=== PATIENT | male | born 1955 | race Caucasian/White ===

== ENCOUNTER 2017-09-23 07:06 | Day surgery (SDC) | payer OTHER, BC ==
[~2017-09-23] VITALS: Ht 177.8 cm; Wt 79.3 kg
[~2017-09-23 07:06] MED LIST: ADVIL,NUPRIN,M200 MG PO; ALIGN4 MG PO; BENEFIBER236 GM PO; NAPROSYN500 MG PO
[2017-09-23] MEDS ORDERED: TYLENOL EXTRA500 MG PO (07:34)
[2017-09-23] MEDS ORDERED: PERCOCET 5/31 TABLET PO (11:44)
[2017-09-23 13:15] VITALS: BP 132/70
[2017-09-23 14:15] VITALS: BP 117/61
[2017-09-23 16:30] VITALS: BP 133/62
== END 2017-09-23 16:55 | disposition home or self-care (01) ==
LOC: SDC 07:06
DX: K40.90 Unilateral inguinal hernia, without obstruction or gangrene, not specified as recurrent (principal); K42.0 Umbilical hernia with obstruction, without gangrene; X50.0XXA Overexertion from strenuous movement or load, initial encounter; Y99.0 Civilian activity done for income or pay; K57.90 Diverticulosis of intestine, part unspecified, without perforation or abscess without bleeding
CPT/HCPCS: C1727; C1781; J0690; J1100; J1170; J1885; J2250; J3010

== ENCOUNTER 2017-10-20 13:13 | Inpatient (IN) | payer BC ==
[~2017-10-20] VITALS: Ht 177.8 cm; Wt 78.2 kg
[~2017-10-20 13:13] MED LIST changes: +PERCOCET 5/31 TABLET PO; +TYLENOL EXTRA500 MG PO
[2017-10-20] MEDS ORDERED: MOTRIN800 MG PO (13:31)
[2017-10-20] MEDS ORDERED: FLEXERIL5 MG PO (13:32)
[2017-10-20 13:51] LABS: HEMATOCRIT 22.1 % (38.0-50.0); HEMOGLOBIN 7.5 G/DL (12.5-16.6); MCH 29.2 PG (29.0-34.0); MCHC 33.9 G/DL (30.0-36.0); PLATELET COUNT 179 K/uL (156-360); RBC DIS.WIDTH-CV 13.6 % (11.8-14.6); RBC DIS.WIDTH-SD 41.9 % (39-53); RED BLOOD COUNT 2.57 M/uL (4.00-5.50); WHITE BLOOD COUNT 12.9 K/uL (4.1-10.2)
[2017-10-20 14:04] LABS: ALBUMIN 3.4 g/dL (3.2-4.8); CHLORIDE 105 mEq/L (99-109); POTASSIUM 4.1 mEq/L (3.7-5.4); SODIUM 138 mEq/L (136-147)
[2017-10-20 14:06] LABS: GLUCOSE 132 mg/dL (70-99)
[2017-10-20 14:07] LABS: TOTAL PROTEIN 5.8 g/dL (6.4-8.3)
[2017-10-20 14:08] LABS: TOTAL BILIRUBIN 0.5 mg/dL (0.0-1.0)
[2017-10-20 14:10] LABS: ALKALINE PHOSPHATASE 48 IU/L (3-129); CREATININE 1.5 mg/dL (0.6-1.3); GFR ESTIMATE (CALCULATED) 50 mL/min/ (58.99-99999)
[2017-10-20 14:11] LABS: UREA NITROGEN (BUN) 59 mg/dL (9-23)
[2017-10-20 14:12] LABS: AST (GOT) 10 IU/L (2-34); DIRECT BILIRUBIN 0.2 mg/dL (0.0-0.3)
[2017-10-20 14:13] LABS: ALT (GPT) 15 IU/L (3-49); LIPASE 17 U/L (1.0-51.0)
[2017-10-20 14:14] LABS: TROP-I INTERPRETATION NEGATIVE; TROPONIN-I 0.01 ng/mL (0.0-0.30)
[2017-10-20 15:08] LABS: APPEARANCE CLEAR ((CLEAR)); BILIRUBIN NEGATIVE; BLOOD NEGATIVE; COLOR STRAW ((YELLOW)); GLUCOSE (STRIP) NEGATIVE; KETONES NEGATIVE; LEUKOCYTES NEGATIVE; NITRITE NEGATIVE; PROTEIN (STRIP) NEGATIVE; SPECIFIC GRAVITY 1.013 (1.000-1.030); UROBILINOGEN 0.2 MG/DL (0.2-1.0)
[2017-10-20] MEDS ORDERED: METAMUCIL POWD822 G1 PO (17:05)
[2017-10-20] MEDS ORDERED: ALIGN4 MG PO (17:05)
[2017-10-20 19:31] VITALS: BP 122/81
[2017-10-20 19:55] VITALS: BP 118/64
[2017-10-20 20:40] VITALS: BP 125/79
[2017-10-20 22:23] VITALS: BP 141/77
[2017-10-21] VITALS (10 sets, daily range): BP systolic 113–140; BP diastolic 65–85
[2017-10-21 06:45] LABS: BASOPHIL (%) 0.2 % (0-1); EOSINOPHIL (%) 0.5 % (0-5); EOSINOPHIL COUNT 0.1 K/uL (0-0.3); HEMATOCRIT 25.3 % (38.0-50.0); HEMOGLOBIN 8.4 G/DL (12.5-16.6); IMMATURE GRANULOCYTE (%) 0.3 % (0.0-0.7); MCH 28.7 PG (29.0-34.0); MCHC 33.2 G/DL (30.0-36.0); MCV 86.3 FL (86-99); NEUTROPHIL COUNT 9.3 K/uL (1.8-6.4); PLATELET COUNT 152 K/uL (156-360); RBC DIS.WIDTH-CV 13.8 % (11.8-14.6); RBC DIS.WIDTH-SD 42.8 % (39-53); RED BLOOD COUNT 2.93 M/uL (4.00-5.50); WHITE BLOOD COUNT 12.4 K/uL (4.1-10.2)
[2017-10-21 07:13] LABS: CHLORIDE 109 MEQ/L (99-109); CREATININE 1.2 MG/DL (0.6-1.3); GFR ESTIMATE (CALCULATED) > 59 mL/min/ (58.99-99999); GLUCOSE 115 mg/dL (70-99); POTASSIUM 3.9 MEQ/L (3.7-5.4); SODIUM 141 MEQ/L (136-147); UREA NITROGEN (BUN) 38 mg/dL (9-23)
[2017-10-21 13:24] LABS: INTER. NORMALIZED RATIO 1.2
[2017-10-21 13:26] LABS: PTT 27.5 SEC (25-37)
[2017-10-22 06:10] LABS: BASOPHIL (%) 0.1 % (0-1); EOSINOPHIL (%) 1.7 % (0-5); EOSINOPHIL COUNT 0.1 K/uL (0-0.3); HEMATOCRIT 24.2 % (38.0-50.0); HEMOGLOBIN 8.1 G/DL (12.5-16.6); IMMATURE GRANULOCYTE (%) 0.4 % (0.0-0.7); LYMPHOCYTE (%) 16.2 % (15-42); LYMPHOCYTE COUNT 1.2 K/uL (1.0-2.8); MCHC 33.5 G/DL (30.0-36.0); MCV 86.7 FL (86-99); MONOCYTE (%) 7.7 % (3-12); MONOCYTE COUNT 0.6 K/uL (0-0.8); NEUTROPHIL (%) 73.9 % (45-76); NEUTROPHIL COUNT 5.7 K/uL (1.8-6.4); PLATELET COUNT 157 K/uL (156-360); RBC DIS.WIDTH-CV 13.9 % (11.8-14.6); RBC DIS.WIDTH-SD 42.8 % (39-53); RED BLOOD COUNT 2.79 M/uL (4.00-5.50); WHITE BLOOD COUNT 7.7 K/uL (4.1-10.2)
[2017-10-22 06:55] LABS: CHLORIDE 108 MEQ/L (99-109); CREATININE 0.9 MG/DL (0.6-1.3); GFR ESTIMATE (CALCULATED) > 59 mL/min/ (58.99-99999); GLUCOSE 109 mg/dL (70-99); POTASSIUM 3.8 MEQ/L (3.7-5.4); SODIUM 141 MEQ/L (136-147); UREA NITROGEN (BUN) 20 mg/dL (9-23)
[2017-10-22 07:20] VITALS: BP 134/69
[2017-10-22 15:47] VITALS: BP 129/64
[2017-10-23] VITALS (9 sets, daily range): BP systolic 120–163; BP diastolic 72–88
[2017-10-23 06:15] LABS: BASOPHIL (%) 0.2 % (0-1); EOSINOPHIL COUNT 0.1 K/uL (0-0.3); HEMATOCRIT 20.3 % (38.0-50.0); IMMATURE GRANULOCYTE (%) 0.2 % (0.0-0.7); LYMPHOCYTE (%) 23.1 % (15-42); MCH 29.1 PG (29.0-34.0); MCHC 33.5 G/DL (30.0-36.0); MCV 86.8 FL (86-99); MONOCYTE (%) 8.9 % (3-12); MONOCYTE COUNT 0.4 K/uL (0-0.8); NEUTROPHIL (%) 64.6 % (45-76); NEUTROPHIL COUNT 2.8 K/uL (1.8-6.4); PLATELET COUNT 126 K/uL (156-360); RBC DIS.WIDTH-CV 13.8 % (11.8-14.6); RBC DIS.WIDTH-SD 42.2 % (39-53); RED BLOOD COUNT 2.34 M/uL (4.00-5.50); WHITE BLOOD COUNT 4.3 K/uL (4.1-10.2)
[2017-10-23 06:16] LABS: HEMOGLOBIN 6.8 G/DL (12.5-16.6)
[2017-10-23 06:31] LABS: CHLORIDE 108 MEQ/L (99-109); CREATININE 1.2 MG/DL (0.6-1.3); GFR ESTIMATE (CALCULATED) > 59 mL/min/ (58.99-99999); GLUCOSE 115 mg/dL (70-99); IRON 17 MCG/DL (35-150); POTASSIUM 3.8 MEQ/L (3.7-5.4); SODIUM 141 MEQ/L (136-147); TRANSFERRIN (TIBC) 134.2 mg/dL (215-380); TRANSFERRIN SATUR. 13 % (20-55); UREA NITROGEN (BUN) 18 mg/dL (9-23)
[2017-10-23 08:23] LABS: FERRITIN 517 NG/ML (22-322); FOLIC ACID (FOLATE) 14.3 NG/ML (5.0-22.0)
[2017-10-23 09:42] LABS: FIBRINOGEN 412 mg/dL (150-450); INTER. NORMALIZED RATIO 1.1
[2017-10-23 09:44] LABS: PTT 26.8 SEC (25-37)
[2017-10-23 14:00] LABS: ABSOLUTE RETICULOCYTE CT. 0.1 M/uL (0.02-0.08); IMM.RETIC FRACTION 17.2 % (3-19); RETIC HGB EQUIVALENT 33.1 (28-36); RETICULOCYTE COUNT 2.5 % (0.5-1.8)
[2017-10-24 07:05] VITALS: BP 149/85
[2017-10-24 07:09] VITALS: BP 130/62
[2017-10-24 08:27] LABS: BASOPHIL (%) 0 % (0-1); EOSINOPHIL (%) 1.4 % (0-5); EOSINOPHIL COUNT 0.1 K/uL (0-0.3); HEMATOCRIT 28.6 % (38.0-50.0); IMMATURE GRANULOCYTE (%) 0.2 % (0.0-0.7); LYMPHOCYTE COUNT 0.7 K/uL (1.0-2.8); MCH 29.5 PG (29.0-34.0); MCHC 33.9 G/DL (30.0-36.0); MCV 86.9 FL (86-99); MONOCYTE (%) 9.1 % (3-12); MONOCYTE COUNT 0.5 K/uL (0-0.8); NEUTROPHIL (%) 75.3 % (45-76); NEUTROPHIL COUNT 3.9 K/uL (1.8-6.4); PLATELET COUNT 127 K/uL (156-360); RBC DIS.WIDTH-CV 13.8 % (11.8-14.6); RBC DIS.WIDTH-SD 42.6 % (39-53); WHITE BLOOD COUNT 5.2 K/uL (4.1-10.2)
[2017-10-24 08:28] LABS: HEMOGLOBIN 9.7 G/DL (12.5-16.6); RED BLOOD COUNT 3.29 M/uL (4.00-5.50)
[2017-10-24 08:43] LABS: ALBUMIN 3.1 G/DL (3.2-4.8); CHLORIDE 106 MEQ/L (99-109); POTASSIUM 3.8 MEQ/L (3.7-5.4); SODIUM 141 MEQ/L (136-147); TOTAL BILIRUBIN 0.6 MG/DL (0.0-1.0)
[2017-10-24 08:49] LABS: ALKALINE PHOSPHATASE 44 IU/L (3-129); ALT (GPT) 15 IU/L (3-49); AST (GOT) 17 IU/L (2-34); CREATININE 1.1 MG/DL (0.6-1.3); GFR ESTIMATE (CALCULATED) > 59 mL/min/ (58.99-99999); GLUCOSE 115 mg/dL (70-99); TOTAL PROTEIN 5.3 G/DL (6.4-8.3); UREA NITROGEN (BUN) 16 mg/dL (9-23)
[2017-10-24 15:15] VITALS: BP 132/77
[2017-10-24 23:54] VITALS: BP 137/73
[2017-10-25 05:53] LABS: BASOPHIL (%) 0.2 % (0-1); EOSINOPHIL (%) 2.3 % (0-5); EOSINOPHIL COUNT 0.1 K/uL (0-0.3); HEMATOCRIT 24.9 % (38.0-50.0); HEMOGLOBIN 8.4 G/DL (12.5-16.6); IMMATURE GRANULOCYTE (%) 0.2 % (0.0-0.7); LYMPHOCYTE (%) 17.9 % (15-42); LYMPHOCYTE COUNT 0.9 K/uL (1.0-2.8); MCH 29.4 PG (29.0-34.0); MCHC 33.7 G/DL (30.0-36.0); MCV 87.1 FL (86-99); MONOCYTE (%) 11.2 % (3-12); MONOCYTE COUNT 0.5 K/uL (0-0.8); NEUTROPHIL (%) 68.2 % (45-76); NEUTROPHIL COUNT 3.2 K/uL (1.8-6.4); PLATELET COUNT 131 K/uL (156-360); RBC DIS.WIDTH-CV 13.8 % (11.8-14.6); RBC DIS.WIDTH-SD 42.3 % (39-53); RED BLOOD COUNT 2.86 M/uL (4.00-5.50); WHITE BLOOD COUNT 4.8 K/uL (4.1-10.2)
[2017-10-25 06:33] LABS: ALBUMIN 2.8 G/DL (3.2-4.8); ALKALINE PHOSPHATASE 40 IU/L (3-129); ALT (GPT) 28 IU/L (3-49); CHLORIDE 106 MEQ/L (99-109); CREATININE 1.3 MG/DL (0.6-1.3); GFR ESTIMATE (CALCULATED) > 59 mL/min/ (58.99-99999); GLUCOSE 108 mg/dL (70-99); POTASSIUM 4.1 MEQ/L (3.7-5.4); SODIUM 141 MEQ/L (136-147); TOTAL PROTEIN 4.7 G/DL (6.4-8.3); UREA NITROGEN (BUN) 15 mg/dL (9-23)
[2017-10-25 06:35] LABS: AST (GOT) 29 IU/L (2-34); TOTAL BILIRUBIN 0.4 MG/DL (0.0-1.0)
[2017-10-25 08:06] VITALS: BP 138/74
[2017-10-25 15:50] VITALS: BP 107/74
[2017-10-25 18:29] LABS: STOOL OCCULT BLD 1ST SPECIMEN POSITIVE
[2017-10-25 23:15] VITALS: BP 113/75
[2017-10-26 08:02] VITALS: BP 122/75
[2017-10-26 09:40] LABS: BASOPHIL (%) 0.2 % (0-1); EOSINOPHIL (%) 1.2 % (0-5); EOSINOPHIL COUNT 0.1 K/uL (0-0.3); HEMOGLOBIN 8.6 G/DL (12.5-16.6); IMMATURE GRANULOCYTE (%) 0.5 % (0.0-0.7); LYMPHOCYTE (%) 12.4 % (15-42); LYMPHOCYTE COUNT 0.7 K/uL (1.0-2.8); MCH 29.2 PG (29.0-34.0); MCHC 33.1 G/DL (30.0-36.0); MCV 88.1 FL (86-99); MONOCYTE (%) 10.1 % (3-12); MONOCYTE COUNT 0.6 K/uL (0-0.8); NEUTROPHIL (%) 75.6 % (45-76); NEUTROPHIL COUNT 4.3 K/uL (1.8-6.4); PLATELET COUNT 157 K/uL (156-360); RBC DIS.WIDTH-SD 44.4 % (39-53); RED BLOOD COUNT 2.95 M/uL (4.00-5.50); WHITE BLOOD COUNT 5.6 K/uL (4.1-10.2)
[2017-10-26 17:14] VITALS: BP 125/75
[2017-10-26 22:33] VITALS: BP 113/69
[2017-10-27] VITALS (12 sets, daily range): BP systolic 115–144; BP diastolic 68–81
[2017-10-27 05:29] LABS: BASOPHIL (%) 0.2 % (0-1); EOSINOPHIL (%) 1.7 % (0-5); EOSINOPHIL COUNT 0.1 K/uL (0-0.3); HEMATOCRIT 24.4 % (38.0-50.0); HEMOGLOBIN 8.1 G/DL (12.5-16.6); IMMATURE GRANULOCYTE (%) 0.2 % (0.0-0.7); MCH 29.2 PG (29.0-34.0); MCHC 33.2 G/DL (30.0-36.0); MCV 88.1 FL (86-99); MONOCYTE (%) 11.2 % (3-12); MONOCYTE COUNT 0.7 K/uL (0-0.8); NEUTROPHIL (%) 70.7 % (45-76); NEUTROPHIL COUNT 4.6 K/uL (1.8-6.4); PLATELET COUNT 166 K/uL (156-360); RBC DIS.WIDTH-CV 13.7 % (11.8-14.6); RBC DIS.WIDTH-SD 44.2 % (39-53); RED BLOOD COUNT 2.77 M/uL (4.00-5.50); WHITE BLOOD COUNT 6.5 K/uL (4.1-10.2)
[2017-10-28 06:20] LABS: BASOPHIL (%) 0.1 % (0-1); EOSINOPHIL (%) 1.5 % (0-5); EOSINOPHIL COUNT 0.1 K/uL (0-0.3); HEMATOCRIT 29.8 % (38.0-50.0); IMMATURE GRANULOCYTE (%) 0.4 % (0.0-0.7); LYMPHOCYTE COUNT 0.8 K/uL (1.0-2.8); MCH 29.8 PG (29.0-34.0); MCHC 33.6 G/DL (30.0-36.0); MCV 88.7 FL (86-99); MONOCYTE (%) 10.8 % (3-12); MONOCYTE COUNT 0.8 K/uL (0-0.8); NEUTROPHIL (%) 76.2 % (45-76); NEUTROPHIL COUNT 5.5 K/uL (1.8-6.4); PLATELET COUNT 161 K/uL (156-360); RBC DIS.WIDTH-CV 13.8 % (11.8-14.6); WHITE BLOOD COUNT 7.2 K/uL (4.1-10.2)
[2017-10-28 06:28] LABS: RED BLOOD COUNT 3.36 M/uL (4.00-5.50)
[2017-10-28 06:47] LABS: CHLORIDE 101 MEQ/L (99-109); CREATININE 1.5 MG/DL (0.6-1.3); GFR ESTIMATE (CALCULATED) 50 mL/min/ (58.99-99999); GLUCOSE 105 mg/dL (70-99); POTASSIUM 4.1 MEQ/L (3.7-5.4); SODIUM 137 MEQ/L (136-147); UREA NITROGEN (BUN) 21 mg/dL (9-23)
[2017-10-28 08:51] VITALS: BP 113/71
[2017-10-28 16:07] VITALS: BP 117/74
[2017-10-29 06:32] LABS: HEMATOCRIT 29.6 % (38.0-50.0); HEMOGLOBIN 9.6 G/DL (12.5-16.6); MCH 28.9 PG (29.0-34.0); MCHC 32.4 G/DL (30.0-36.0); MCV 89.2 FL (86-99); RBC DIS.WIDTH-CV 13.9 % (11.8-14.6); RBC DIS.WIDTH-SD 45.4 % (39-53); RED BLOOD COUNT 3.32 M/uL (4.00-5.50); WHITE BLOOD COUNT 7.7 K/uL (4.1-10.2)
[2017-10-29 06:41] VITALS: BP 130/72
[2017-10-29 06:42] LABS: PLATELET COUNT 211 K/uL (156-360)
[2017-10-29 06:53] LABS: CHLORIDE 102 MEQ/L (99-109); CREATININE 1.6 MG/DL (0.6-1.3); GFR ESTIMATE (CALCULATED) 47 mL/min/ (58.99-99999); GLUCOSE 97 mg/dL (70-99); POTASSIUM 4.7 MEQ/L (3.7-5.4); SODIUM 137 MEQ/L (136-147); UREA NITROGEN (BUN) 25 mg/dL (9-23)
[2017-10-29 12:03] LABS: HEMATOCRIT 31.9 % (38.0-50.0); HEMOGLOBIN 10.4 G/DL (12.5-16.6); MCV 89.4 FL (86-99)
[2017-10-29] MEDS ORDERED: NADOLOL40 MG PO (12:24)
[2017-10-29] MEDS ORDERED: PANTOPRAZOLE SO40 MG PO (12:25)
[2017-10-29] MEDS ORDERED: CREON 241 CAPSULE PO (12:25)
[2017-10-29] MEDS ORDERED: ENDOCET 5-3251 EACH PO (12:25)
[2017-10-29] MEDS ORDERED: CEPHALEXIN500 MG PO (12:28)
== END 2017-10-29 14:35 | disposition home or self-care (01) | DRG 436 ==
LOC: EME 13:13 → 5EAST 19:26 → EDOF 19:26 → ENRESERV 19:28 → 5EAST 21:05 → ENPENDDIS 10-29 → 5EAST 10-29 14:35
PROVIDERS: Emergency Medicine; Hospitalist; Internal Medicine Gastroenterology; Internal Medicine Hematology & Oncology; Nurse Practitioner Family; Radiology Diagnostic Radiology; Student in an Organized Health Care Education/Training Program
PROC: 30233N1 Transfusion of Nonautologous Red Blood Cells into Peripheral Vein, Percutaneous Approach (ICD-10-PCS; principal; 2017-10-20)
PROC: 0BBN3ZX Excision of Right Pleura, Percutaneous Approach, Diagnostic (ICD-10-PCS; 2017-10-21)
PROC: 0DJ08ZZ Inspection of Upper Intestinal Tract, Via Natural or Artificial Opening Endoscopic (ICD-10-PCS; 2017-10-28)
DX: C25.2 Malignant neoplasm of tail of pancreas (principal); C78.6 Secondary malignant neoplasm of retroperitoneum and peritoneum; N13.6 Pyonephrosis; D63.8 Anemia in other chronic diseases classified elsewhere; D73.5 Infarction of spleen; R18.8 Other ascites; I86.4 Gastric varices; K29.80 Duodenitis without bleeding; K40.90 Unilateral inguinal hernia, without obstruction or gangrene, not specified as recurrent; K92.1 Melena; K76.9 Liver disease, unspecified; N28.9 Disorder of kidney and ureter, unspecified; M54.5 Low back pain; G89.29 Other chronic pain; Z82.49 Family history of ischemic heart disease and other diseases of the circulatory system; Z81.8 Family history of other mental and behavioral disorders; Z83.3 Family history of diabetes mellitus; Z98.890 Other specified postprocedural states
CPT/HCPCS: 74176; 74177; 74183; 77012; 80048; 80053; 80076; 81003; 82272; 82607; 82728; 82746; 83540; 83605; 83690; 84466; 84484; 85014; 85018; 85025; 85027; 85379; 85384; 85610; 85730; 86301 90; 86850; 86900; 86901; 86920; 87040; 88305; 88341 TC; 88342 TC; 93005; 99281; 99285; C9113; J0696; J1170; J1650; J2270; J2405; J3010; J7030; P9016

== ENCOUNTER 2017-11-18 15:27 | Inpatient (IN) | payer BC ==
[~2017-11-18 15:27] MED LIST changes: +CEPHALEXIN500 MG PO; +CREON 241 CAPSULE PO; +ENDOCET 5-3251 EACH PO; +FLEXERIL5 MG PO; +METAMUCIL POWD822 G1 PO; +MOTRIN800 MG PO; +NADOLOL40 MG PO; +OXYCODONE HCL10 MG PO; +OXYCONTIN10 MG PO; +PANTOPRAZOLE SO40 MG PO
[2017-11-18 17:17] LABS: APPEARANCE SL.HAZY ((CLEAR)); BILIRUBIN NEGATIVE; BLOOD NEGATIVE; COLOR YELLOW ((YELLOW)); GLUCOSE (STRIP) NEGATIVE; KETONES NEGATIVE; LEUKOCYTES NEGATIVE; NITRITE NEGATIVE; PROTEIN (STRIP) NEGATIVE; SPECIFIC GRAVITY 1.017 (1.000-1.030); UROBILINOGEN 0.2 MG/DL (0.2-1.0)
[2017-11-18 17:23] LABS: BACTERIA NONE SEEN /HPF; EPITHELIAL CELLS NONE SEEN /HPF; MUCUS TRACE /LPF; RED BLOOD CELLS 0-5 /HPF (0-5); WHITE BLOOD CELLS 0-5 /HPF (0-5)
[2017-11-18 20:26] VITALS: BP 78/41
[2017-11-18] MEDS ORDERED: PRILOSEC20 MG PO (21:04)
[2017-11-18] MEDS ORDERED: MIRALAX17 GM PO (21:36)
[2017-11-18 23:42] VITALS: BP 83/49
[2017-11-19] VITALS (10 sets, daily range): BP systolic 92–190; BP diastolic 53–84
[2017-11-19 05:54] LABS: CHLORIDE 101 MEQ/L (99-109); CREATININE 2.2 MG/DL (0.6-1.3); GFR ESTIMATE (CALCULATED) 32 mL/min/ (58.99-99999); GLUCOSE 117 mg/dL (70-99); POTASSIUM 4.5 MEQ/L (3.7-5.4); SODIUM 135 MEQ/L (136-147); UREA NITROGEN (BUN) 72 mg/dL (9-23)
[2017-11-19 06:07] LABS: HEMATOCRIT 21.8 % (38.0-50.0); HEMOGLOBIN 7.2 G/DL (12.5-16.6); MCH 29.1 PG (29.0-34.0); MCV 88.3 FL (86-99); NRBC (%) 0.8 /100 WBC (0-0); RBC DIS.WIDTH-CV 14.5 % (11.8-14.6); RBC DIS.WIDTH-SD 46.2 % (39-53); WHITE BLOOD COUNT 6.6 K/uL (4.1-10.2)
[2017-11-19 06:08] LABS: RED BLOOD COUNT 2.47 M/uL (4.00-5.50)
[2017-11-19 06:19] LABS: PLAT.SUFFICIENCY DECREASED
[2017-11-19 06:21] LABS: PLATELET COUNT 97 K/uL (156-360)
[2017-11-20] VITALS (7 sets, daily range): BP systolic 99–133; BP diastolic 56–69
[2017-11-20 06:12] LABS: HEMATOCRIT 26.2 % (38.0-50.0); HEMOGLOBIN 8.6 G/DL (12.5-16.6); MCH 28.8 PG (29.0-34.0); MCHC 32.8 G/DL (30.0-36.0); MCV 87.6 FL (86-99); NRBC (%) 1.5 /100 WBC (0-0); PLATELET COUNT 115 K/uL (156-360); RBC DIS.WIDTH-CV 14.6 % (11.8-14.6); RBC DIS.WIDTH-SD 45.9 % (39-53); WHITE BLOOD COUNT 5.2 K/uL (4.1-10.2)
[2017-11-20 06:15] LABS: RED BLOOD COUNT 2.99 M/uL (4.00-5.50)
[2017-11-20 06:22] LABS: CHLORIDE 104 MEQ/L (99-109); CREATININE 1.9 MG/DL (0.6-1.3); GFR ESTIMATE (CALCULATED) 38 mL/min/ (58.99-99999); GLUCOSE 105 mg/dL (70-99); POTASSIUM 4.5 MEQ/L (3.7-5.4); SODIUM 136 MEQ/L (136-147); UREA NITROGEN (BUN) 51 mg/dL (9-23)
[2017-11-20] MEDS ORDERED: PROTONIX40 MG PO (12:12)
[2017-11-20 23:35] LABS: STOOL OCCULT BLD 1ST SPECIMEN NEGATIVE
[2017-11-21] VITALS (7 sets, daily range): BP systolic 101–124; BP diastolic 60–75
[2017-11-21 07:26] LABS: MCHC 32.4 G/DL (30.0-36.0); MCV 89.4 FL (86-99); NRBC (%) 0.8 /100 WBC (0-0); RBC DIS.WIDTH-CV 14.6 % (11.8-14.6); RBC DIS.WIDTH-SD 47.4 % (39-53); WHITE BLOOD COUNT 8.7 K/uL (4.1-10.2)
[2017-11-21 07:30] LABS: HEMOGLOBIN 10.7 G/DL (12.5-16.6); PLATELET COUNT 206 K/uL (156-360); RED BLOOD COUNT 3.69 M/uL (4.00-5.50)
[2017-11-22 04:16] VITALS: BP 112/63
[2017-11-22 08:34] VITALS: BP 103/62
[2017-11-22 12:16] VITALS: BP 116/72
[2017-11-22 12:56] LABS: HEMATOCRIT 29.5 % (38.0-50.0); HEMOGLOBIN 9.3 G/DL (12.5-16.6); MCH 28.7 PG (29.0-34.0); MCHC 31.5 G/DL (30.0-36.0); PLATELET COUNT 190 K/uL (156-360); RBC DIS.WIDTH-CV 14.6 % (11.8-14.6); RBC DIS.WIDTH-SD 47.6 % (39-53); RED BLOOD COUNT 3.24 M/uL (4.00-5.50); WHITE BLOOD COUNT 5.2 K/uL (4.1-10.2)
[2017-11-22 13:22] LABS: CHLORIDE 110 MEQ/L (99-109); CREATININE 1.3 MG/DL (0.6-1.3); GFR ESTIMATE (CALCULATED) > 59 mL/min/ (58.99-99999); GLUCOSE 100 mg/dL (70-99); POTASSIUM 4.4 MEQ/L (3.7-5.4); SODIUM 140 MEQ/L (136-147); UREA NITROGEN (BUN) 29 mg/dL (9-23)
[2017-11-22 16:35] VITALS: BP 109/69
[2017-11-22 21:00] VITALS: BP 115/78
[2017-11-22 23:35] VITALS: BP 117/62
[2017-11-23] VITALS (7 sets, daily range): BP systolic 108–182; BP diastolic 63–82
[2017-11-23 10:09] LABS: HEMATOCRIT 25.5 % (38.0-50.0); MCH 28.5 PG (29.0-34.0); MCHC 31.4 G/DL (30.0-36.0); MCV 90.7 FL (86-99); NRBC (%) 0.4 /100 WBC (0-0); PLATELET COUNT 222 K/uL (156-360); RBC DIS.WIDTH-CV 14.8 % (11.8-14.6); RBC DIS.WIDTH-SD 48.7 % (39-53); RED BLOOD COUNT 2.81 M/uL (4.00-5.50); WHITE BLOOD COUNT 5.5 K/uL (4.1-10.2)
[2017-11-23 10:42] LABS: ALBUMIN 1.9 G/DL (3.2-4.8); CHLORIDE 107 MEQ/L (99-109); DIRECT BILIRUBIN 0.2 mg/dL (0.0-0.3); POTASSIUM 4.4 MEQ/L (3.7-5.4); SODIUM 137 MEQ/L (136-147)
[2017-11-23 10:48] LABS: ALT (GPT) 32 IU/L (3-49); AST (GOT) 37 IU/L (2-34); CREATININE 1.4 MG/DL (0.6-1.3); GFR ESTIMATE (CALCULATED) 55 mL/min/ (58.99-99999); GLUCOSE 93 mg/dL (70-99); UREA NITROGEN (BUN) 26 mg/dL (9-23)
[2017-11-23 10:49] LABS: ALKALINE PHOSPHATASE 96 IU/L (3-129); TOTAL BILIRUBIN 0.4 MG/DL (0.0-1.0); TOTAL PROTEIN 3.9 G/DL (6.4-8.3)
[2017-11-23 15:34] LABS: INTER. NORMALIZED RATIO 1.2
[2017-11-23 15:36] LABS: PTT 31.6 SEC (25-37)
[2017-11-23 16:56] LABS: TYPE OF FLUID PLEURAL
[2017-11-23 17:37] LABS: BODY FLUID GLUCOSE 135 MG/DL; BODY FLUID LDH 78 IU/L; BODY FLUID PROTEIN < 3.0 G/DL
[2017-11-23 17:41] LABS: APPEARANCE YELLOW- SL CLOUDY; BODY FLUID EOSINOPHILS 0 % (0-25); BODY FLUID RBC'S 2000 /MM^3 (0-100); BODY FLUID WBC'S 282 /MM^3 (0-500); COMMENT MANY MESOTHELIAL CELLS SEEN; MONONUCLEAR WBC'S 71 %; POLYNUCLEAR WBC'S 29 % (0-25)
[2017-11-24 04:23] VITALS: BP 116/74
[2017-11-24 08:50] VITALS: BP 141/84
[2017-11-24 11:21] LABS: HEMATOCRIT 28.4 % (38.0-50.0); MCH 28.9 PG (29.0-34.0); MCHC 31.7 G/DL (30.0-36.0); MCV 91.3 FL (86-99); PLATELET COUNT 245 K/uL (156-360); RBC DIS.WIDTH-SD 46.8 % (39-53); RED BLOOD COUNT 3.11 M/uL (4.00-5.50)
[2017-11-24 11:52] LABS: CHLORIDE 108 MEQ/L (99-109); POTASSIUM 4.2 MEQ/L (3.7-5.4); SODIUM 140 MEQ/L (136-147)
[2017-11-24 12:00] LABS: CREATININE 1.4 MG/DL (0.6-1.3); GFR ESTIMATE (CALCULATED) 55 mL/min/ (58.99-99999); UREA NITROGEN (BUN) 27 mg/dL (9-23)
[2017-11-24 12:05] LABS: GLUCOSE 141 mg/dL (70-99)
[2017-11-24 12:56] VITALS: BP 133/75
[2017-11-24 16:39] VITALS: BP 135/77
[2017-11-24 19:59] VITALS: BP 116/64
[2017-11-24 23:20] VITALS: BP 121/72
[2017-11-25 03:56] VITALS: BP 162/73
[2017-11-25 08:47] VITALS: BP 159/80
[2017-11-25 13:03] VITALS: BP 122/69
[2017-11-25 16:37] VITALS: BP 100/68
[2017-11-25 17:03] VITALS: BP 141/81
[2017-11-25 20:31] VITALS: BP 130/70
[2017-11-26] VITALS (7 sets, daily range): BP systolic 111–129; BP diastolic 63–75
[2017-11-26 05:59] LABS: BASOPHIL (%) 0.2 % (0-1); EOSINOPHIL (%) 1.3 % (0-5); EOSINOPHIL COUNT 0.1 K/uL (0-0.3); HEMATOCRIT 25.7 % (38.0-50.0); LYMPHOCYTE (%) 10.6 % (15-42); LYMPHOCYTE COUNT 0.6 K/uL (1.0-2.8); MCH 28.2 PG (29.0-34.0); MCHC 31.1 G/DL (30.0-36.0); MCV 90.5 FL (86-99); MONOCYTE (%) 18.2 % (3-12); NEUTROPHIL (%) 68.7 % (45-76); NEUTROPHIL COUNT 3.6 K/uL (1.8-6.4); PLATELET COUNT 248 K/uL (156-360); RBC DIS.WIDTH-CV 15.5 % (11.8-14.6); RBC DIS.WIDTH-SD 47.6 % (39-53); RED BLOOD COUNT 2.84 M/uL (4.00-5.50); WHITE BLOOD COUNT 5.2 K/uL (4.1-10.2)
[2017-11-26 06:16] LABS: CHLORIDE 105 MEQ/L (99-109); CREATININE 1.3 MG/DL (0.6-1.3); GFR ESTIMATE (CALCULATED) > 59 mL/min/ (58.99-99999); POTASSIUM 4.7 MEQ/L (3.7-5.4); SODIUM 137 MEQ/L (136-147); UREA NITROGEN (BUN) 24 mg/dL (9-23)
[2017-11-26 06:25] LABS: GLUCOSE 103 mg/dL (70-99)
[2017-11-27 04:15] VITALS: BP 122/74
[2017-11-27 04:48] LABS: BASOPHIL (%) 0.5 % (0-1); EOSINOPHIL (%) 1.4 % (0-5); EOSINOPHIL COUNT 0.1 K/uL (0-0.3); HEMATOCRIT 27.2 % (38.0-50.0); HEMOGLOBIN 8.8 G/DL (12.5-16.6); IMMATURE GRANULOCYTE (%) 0.9 % (0.0-0.7); LYMPHOCYTE COUNT 0.4 K/uL (1.0-2.8); MCH 29.3 PG (29.0-34.0); MCHC 32.4 G/DL (30.0-36.0); MCV 90.7 FL (86-99); MONOCYTE (%) 18.6 % (3-12); MONOCYTE COUNT 0.8 K/uL (0-0.8); NEUTROPHIL (%) 68.6 % (45-76); PLATELET COUNT 234 K/uL (156-360); RBC DIS.WIDTH-CV 15.7 % (11.8-14.6); RBC DIS.WIDTH-SD 48.9 % (39-53); WHITE BLOOD COUNT 4.3 K/uL (4.1-10.2)
[2017-11-27 05:17] LABS: CHLORIDE 102 MEQ/L (99-109); CREATININE 1.4 MG/DL (0.6-1.3); GFR ESTIMATE (CALCULATED) 55 mL/min/ (58.99-99999); GLUCOSE 97 mg/dL (70-99); POTASSIUM 4.7 MEQ/L (3.7-5.4); SODIUM 135 MEQ/L (136-147); UREA NITROGEN (BUN) 24 mg/dL (9-23)
[2017-11-27 05:56] LABS: BODY FLUID PH 8.1 (())
[2017-11-27 07:55] VITALS: BP 143/94
[2017-11-27 16:00] VITALS: BP 108/56
[2017-11-27 20:34] VITALS: BP 107/65
[2017-11-28 01:18] VITALS: BP 115/66
[2017-11-28 06:51] LABS: CHLORIDE 102 MEQ/L (99-109); CREATININE 1.4 MG/DL (0.6-1.3); GFR ESTIMATE (CALCULATED) 55 mL/min/ (58.99-99999); GLUCOSE 101 mg/dL (70-99); POTASSIUM 4.4 MEQ/L (3.7-5.4); SODIUM 137 MEQ/L (136-147); UREA NITROGEN (BUN) 25 mg/dL (9-23)
[2017-11-28 08:00] VITALS: BP 111/74
[2017-11-28 17:32] VITALS: BP 104/59
[2017-11-28 20:10] VITALS: BP 119/66
[2017-11-29 00:10] VITALS: BP 121/70
[2017-11-29 05:52] LABS: EOSINOPHIL (%) 1.5 % (0-5); EOSINOPHIL COUNT 0.1 K/uL (0-0.3); HEMATOCRIT 29.6 % (38.0-50.0); HEMOGLOBIN 9.3 G/DL (12.5-16.6); IMMATURE GRANULOCYTE (%) 0.8 % (0.0-0.7); LYMPHOCYTE (%) 18.2 % (15-42); LYMPHOCYTE COUNT 0.7 K/uL (1.0-2.8); MCH 28.1 PG (29.0-34.0); MCHC 31.4 G/DL (30.0-36.0); MCV 89.4 FL (86-99); MONOCYTE COUNT 0.8 K/uL (0-0.8); NEUTROPHIL (%) 59.5 % (45-76); NEUTROPHIL COUNT 2.4 K/uL (1.8-6.4); PLATELET COUNT 275 K/uL (156-360); RBC DIS.WIDTH-CV 15.9 % (11.8-14.6); RBC DIS.WIDTH-SD 48.9 % (39-53); RED BLOOD COUNT 3.31 M/uL (4.00-5.50)
[2017-11-29 06:12] LABS: CHLORIDE 101 MEQ/L (99-109); CREATININE 1.5 MG/DL (0.6-1.3); GFR ESTIMATE (CALCULATED) 50 mL/min/ (58.99-99999); GLUCOSE 103 mg/dL (70-99); POTASSIUM 4.6 MEQ/L (3.7-5.4); SODIUM 134 MEQ/L (136-147); UREA NITROGEN (BUN) 23 mg/dL (9-23)
[2017-11-29 07:35] VITALS: BP 116/73
[2017-11-29 16:20] VITALS: BP 126/44
[2017-11-29] MEDS ORDERED: CEPHALEXIN500 MG PO (17:19)
[2017-11-29] MEDS ORDERED: SPIRONOLACTONE25 MG PO (17:19)
[2017-11-29] MEDS ORDERED: NADOLOL20 MG PO (17:19)
[2017-11-29] MEDS ORDERED: MEGESTROL400 MG/10 PO (17:20)
== END 2017-11-29 18:50 | disposition home health service (06) | DRG 580 ==
LOC: EME 15:27 → EDOF 16:47 → 4SOUTH 16:47 → ENRESERV 17:08 → 4SOUTH 19:52
PROVIDERS: Emergency Medicine Emergency Medical Services; Hospitalist; Internal Medicine; Internal Medicine Nephrology; Radiology Diagnostic Radiology
PROC: 30233N1 Transfusion of Nonautologous Red Blood Cells into Peripheral Vein, Percutaneous Approach (ICD-10-PCS; principal; 2017-11-19)
PROC: 0W9B3ZX Drainage of Left Pleural Cavity, Percutaneous Approach, Diagnostic (ICD-10-PCS; 2017-11-23)
PROC: 0JH63WZ Insertion of Totally Implantable Vascular Access Device into Chest Subcutaneous Tissue and Fascia, Percutaneous Approach (ICD-10-PCS; 2017-11-23)
PROC: 02HV33Z Insertion of Infusion Device into Superior Vena Cava, Percutaneous Approach (ICD-10-PCS; 2017-11-23)
PROC: B5181ZA Fluoroscopy of Superior Vena Cava using Low Osmolar Contrast, Guidance (ICD-10-PCS; 2017-11-23)
PROC: 0W9B30Z Drainage of Left Pleural Cavity with Drainage Device, Percutaneous Approach (ICD-10-PCS; 2017-11-28)
DX: L03.116 Cellulitis of left lower limb (principal); J91.0 Malignant pleural effusion; C78.6 Secondary malignant neoplasm of retroperitoneum and peritoneum; C25.2 Malignant neoplasm of tail of pancreas; N17.9 Acute kidney failure, unspecified; J98.11 Atelectasis; I89.0 Lymphedema, not elsewhere classified; G89.3 Neoplasm related pain (acute) (chronic); I48.0 Paroxysmal atrial fibrillation; L03.115 Cellulitis of right lower limb; D69.59 Other secondary thrombocytopenia; D50.9 Iron deficiency anemia, unspecified; N18.3 Chronic kidney disease, stage 3 (moderate); T45.1X5A Adverse effect of antineoplastic and immunosuppressive drugs, initial encounter; K31.84 Gastroparesis; K21.9 Gastro-esophageal reflux disease without esophagitis; I87.8 Other specified disorders of veins; I12.9 Hypertensive chronic kidney disease with stage 1 through stage 4 chronic kidney disease, or unspecified chronic kidney disease; E86.9 Volume depletion, unspecified; E88.09 Other disorders of plasma-protein metabolism, not elsewhere classified; Z80.3 Family history of malignant neoplasm of breast
CPT/HCPCS: 32557; 71045; 71046; 71048; 71250; 76770; 76942; 80048; 80053; 80076; 80202; 81003; 82272; 82945; 83615 91; 83986 90; 84157; 85025; 85027; 85610; 85730; 86850; 86900; 86901; 86920; 87040; 87070; 87075; 87116; 87205; 87206; 87641; 88108; 89051; 93005; 93970; 99202; 99281; 99285; C1729; C1751; G0463; J0295; J0690; J0696; J1644; J1940; J2250; J2310; J3010; J3370; J7030; J7050; P9016; P9047

== ENCOUNTER 2017-12-08 01:21 | Inpatient (IN) | payer BC ==
[~2017-12-08] VITALS: Ht 170.2 cm; Wt 82.9 kg
[2017-12-08] VITALS (10 sets, daily range): BP systolic 84–111; BP diastolic 47–69
[~2017-12-08 01:21] MED LIST changes: +MEGESTROL400 MG/10 PO; +MIRALAX17 GM PO; +NADOLOL20 MG PO; -OXYCONTIN10 MG PO; +OXYCONTIN20 MG PO; +PRILOSEC20 MG PO; +PROTONIX40 MG PO; +SPIRONOLACTONE25 MG PO
[2017-12-08 02:31] LABS: HEMATOCRIT 19.3 % (38.0-50.0); HEMOGLOBIN 6.4 G/DL (12.5-16.6); MCHC 33.2 G/DL (30.0-36.0); MCV 87.3 FL (86-99); RBC DIS.WIDTH-CV 15.6 % (11.8-14.6); RBC DIS.WIDTH-SD 48.6 % (39-53); RED BLOOD COUNT 2.21 M/uL (4.00-5.50)
[2017-12-08 02:32] LABS: ALBUMIN 2.8 g/dL (3.2-4.8); CHLORIDE 100 mEq/L (99-109); POTASSIUM 4.7 mEq/L (3.7-5.4)
[2017-12-08 02:35] LABS: GLUCOSE 124 mg/dL (70-99); TOTAL PROTEIN 5.1 g/dL (6.4-8.3)
[2017-12-08 02:38] LABS: ALKALINE PHOSPHATASE 67 IU/L (3-129); CREATININE 1.4 mg/dL (0.6-1.3); GFR ESTIMATE (CALCULATED) 55 mL/min/ (58.99-99999)
[2017-12-08 02:40] LABS: AST (GOT) 16 IU/L (2-34); DIRECT BILIRUBIN 0.6 mg/dL (0.0-0.3)
[2017-12-08 02:41] LABS: ALT (GPT) 11 IU/L (3-49)
[2017-12-08 02:42] LABS: LIPASE 3 U/L (1.0-51.0)
[2017-12-08 02:54] LABS: SODIUM 132 mEq/L (136-147); UREA NITROGEN (BUN) 45 mg/dL (9-23)
[2017-12-08 03:20] LABS: BASOPHIL (%) 0 % (0-1); EOSINOPHIL (%) 0 % (0-5); IMMATURE GRANULOCYTE (%) 3.3 % (0.0-0.7); LYMPHOCYTE (%) 1.7 % (15-42); LYMPHOCYTE COUNT 0.3 K/uL (1.0-2.8); MONOCYTE (%) 0.4 % (3-12); MONOCYTE COUNT 0.1 K/uL (0-0.8); NEUTROPHIL (%) 94.6 % (45-76); NEUTROPHIL COUNT 18.9 K/uL (1.8-6.4); PLAT.SUFFICIENCY ADEQUATE; PLATELET COUNT 145 K/uL (156-360)
[2017-12-08 03:44] LABS: MONOSPOT (MONONUCLEOSIS SEROL) NEGATIVE
[2017-12-08 09:36] LABS: APPEARANCE CLEAR ((CLEAR)); BILIRUBIN NEGATIVE; BLOOD NEGATIVE; COLOR YELLOW ((YELLOW)); GLUCOSE (STRIP) NEGATIVE; KETONES NEGATIVE; LEUKOCYTES NEGATIVE; NITRITE NEGATIVE; PROTEIN (STRIP) NEGATIVE; UROBILINOGEN 0.2 MG/DL (0.2-1.0)
[2017-12-09] VITALS (15 sets, daily range): BP systolic 96–118; BP diastolic 31–71
[2017-12-09 05:52] LABS: BASOPHIL (%) 0.3 % (0-1); EOSINOPHIL (%) 1.8 % (0-5); EOSINOPHIL COUNT 0.1 K/uL (0-0.3); HEMATOCRIT 15.1 % (38.0-50.0); IMMATURE GRANULOCYTE (%) 0.8 % (0.0-0.7); LYMPHOCYTE (%) 7.2 % (15-42); LYMPHOCYTE COUNT 0.6 K/uL (1.0-2.8); MCH 28.6 PG (29.0-34.0); MCHC 31.8 G/DL (30.0-36.0); MCV 89.9 FL (86-99); MONOCYTE (%) 1.5 % (3-12); MONOCYTE COUNT 0.1 K/uL (0-0.8); NEUTROPHIL (%) 88.4 % (45-76); NEUTROPHIL COUNT 6.9 K/uL (1.8-6.4); PLATELET COUNT 136 K/uL (156-360); RBC DIS.WIDTH-CV 15.3 % (11.8-14.6); RBC DIS.WIDTH-SD 49.5 % (39-53); WHITE BLOOD COUNT 7.8 K/uL (4.1-10.2)
[2017-12-09 05:53] LABS: RED BLOOD COUNT 1.68 M/uL (4.00-5.50)
[2017-12-09 05:55] LABS: HEMOGLOBIN 4.8 G/DL (12.5-16.6)
[2017-12-09 06:40] LABS: CHLORIDE 112 MEQ/L (99-109); CREATININE 1.3 MG/DL (0.6-1.3); GFR ESTIMATE (CALCULATED) > 59 mL/min/ (58.99-99999); GLUCOSE 96 mg/dL (70-99); MAGNESIUM 1.8 mg/dl (1.3-2.7); POTASSIUM 4.4 MEQ/L (3.7-5.4); UREA NITROGEN (BUN) 56 mg/dL (9-23)
[2017-12-09 06:43] LABS: SODIUM 140 MEQ/L (136-147)
[2017-12-09 07:05] LABS: HEMATOCRIT 16.4 % (38.0-50.0); MCH 28.4 PG (29.0-34.0); MCHC 31.7 G/DL (30.0-36.0); MCV 89.6 FL (86-99); PLATELET COUNT 159 K/uL (156-360); RBC DIS.WIDTH-CV 15.5 % (11.8-14.6); RBC DIS.WIDTH-SD 50.2 % (39-53); RED BLOOD COUNT 1.83 M/uL (4.00-5.50); WHITE BLOOD COUNT 9.8 K/uL (4.1-10.2)
[2017-12-09 07:06] LABS: HEMOGLOBIN 5.2 G/DL (12.5-16.6)
[2017-12-09 10:30] LABS: STOOL OCCULT BLD 1ST SPECIMEN POSITIVE
[2017-12-09 14:43] LABS: HEMATOCRIT 18.9 % (38.0-50.0)
[2017-12-09 14:44] LABS: HEMOGLOBIN 6.1 G/DL (12.5-16.6)
[2017-12-10] VITALS (16 sets, daily range): BP systolic 104–157; BP diastolic 57–86
[2017-12-10 06:53] LABS: BASOPHIL (%) 0.7 % (0-1); EOSINOPHIL (%) 6.4 % (0-5); EOSINOPHIL COUNT 0.2 K/uL (0-0.3); HEMATOCRIT 20.5 % (38.0-50.0); IMMATURE GRANULOCYTE (%) 1.7 % (0.0-0.7); LYMPHOCYTE (%) 15.3 % (15-42); LYMPHOCYTE COUNT 0.5 K/uL (1.0-2.8); MCH 29.1 PG (29.0-34.0); MCHC 32.7 G/DL (30.0-36.0); MCV 89.1 FL (86-99); MONOCYTE (%) 3.4 % (3-12); MONOCYTE COUNT 0.1 K/uL (0-0.8); NEUTROPHIL (%) 72.5 % (45-76); NEUTROPHIL COUNT 2.1 K/uL (1.8-6.4); PLATELET COUNT 118 K/uL (156-360); RBC DIS.WIDTH-CV 15.3 % (11.8-14.6)
[2017-12-10 06:59] LABS: HEMOGLOBIN 6.7 G/DL (12.5-16.6)
[2017-12-10 07:12] LABS: ALBUMIN 2.1 G/DL (3.2-4.8); ALKALINE PHOSPHATASE 56 IU/L (3-129); ALT (GPT) 16 IU/L (3-49); AST (GOT) 21 IU/L (2-34); CHLORIDE 112 MEQ/L (99-109); CREATININE 1.2 MG/DL (0.6-1.3); GFR ESTIMATE (CALCULATED) > 59 mL/min/ (58.99-99999); GLUCOSE 124 mg/dL (70-99); POTASSIUM 4.5 MEQ/L (3.7-5.4); SODIUM 138 MEQ/L (136-147); TOTAL BILIRUBIN 0.9 MG/DL (0.0-1.0); TOTAL PROTEIN 4.2 G/DL (6.4-8.3); UREA NITROGEN (BUN) 38 mg/dL (9-23)
[2017-12-10 18:19] LABS: HEMATOCRIT 29.7 % (38.0-50.0); HEMOGLOBIN 9.8 G/DL (12.5-16.6); MCV 89.2 FL (86-99)
[2017-12-11 00:43] VITALS: BP 141/75
[2017-12-11 04:59] VITALS: BP 125/67
[2017-12-11 05:38] LABS: BASOPHIL (%) 0.5 % (0-1); EOSINOPHIL COUNT 0.2 K/uL (0-0.3); HEMOGLOBIN 9.7 G/DL (12.5-16.6); IMMATURE GRANULOCYTE (%) 2.6 % (0.0-0.7); LYMPHOCYTE (%) 19.1 % (15-42); LYMPHOCYTE COUNT 0.8 K/uL (1.0-2.8); MCH 28.8 PG (29.0-34.0); MCHC 32.3 G/DL (30.0-36.0); MONOCYTE (%) 5.9 % (3-12); MONOCYTE COUNT 0.3 K/uL (0-0.8); NEUTROPHIL (%) 67.9 % (45-76); NEUTROPHIL COUNT 2.9 K/uL (1.8-6.4); NRBC (%) 0.7 /100 WBC (0-0); PLATELET COUNT 141 K/uL (156-360); RBC DIS.WIDTH-CV 14.8 % (11.8-14.6); RBC DIS.WIDTH-SD 47.5 % (39-53); WHITE BLOOD COUNT 4.2 K/uL (4.1-10.2)
[2017-12-11 05:40] LABS: RED BLOOD COUNT 3.37 M/uL (4.00-5.50)
[2017-12-11 06:05] LABS: ALBUMIN 2.5 G/DL (3.2-4.8); ALKALINE PHOSPHATASE 62 IU/L (3-129); ALT (GPT) 20 IU/L (3-49); AST (GOT) 27 IU/L (2-34); CHLORIDE 113 MEQ/L (99-109); CREATININE 1.1 MG/DL (0.6-1.3); GFR ESTIMATE (CALCULATED) > 59 mL/min/ (58.99-99999); GLUCOSE 120 mg/dL (70-99); POTASSIUM 4.3 MEQ/L (3.7-5.4); SODIUM 139 MEQ/L (136-147); UREA NITROGEN (BUN) 27 mg/dL (9-23)
[2017-12-11 06:11] LABS: TOTAL BILIRUBIN 1.1 MG/DL (0.0-1.0); TOTAL PROTEIN 5.1 G/DL (6.4-8.3)
[2017-12-11 07:30] VITALS: BP 154/83
[2017-12-11 11:46] VITALS: BP 159/83
[2017-12-11 17:35] VITALS: BP 141/80
[2017-12-11 20:20] VITALS: BP 152/74
[2017-12-12 01:08] VITALS: BP 145/87
[2017-12-12 05:01] VITALS: BP 166/86
[2017-12-12 07:39] VITALS: BP 155/81
[2017-12-12 09:38] LABS: HEMATOCRIT 30.4 % (38.0-50.0); HEMOGLOBIN 9.9 G/DL (12.5-16.6); MCH 29.1 PG (29.0-34.0); MCHC 32.6 G/DL (30.0-36.0); MCV 89.4 FL (86-99); NRBC (%) 0.8 /100 WBC (0-0); PLATELET COUNT 115 K/uL (156-360); RBC DIS.WIDTH-CV 14.6 % (11.8-14.6); WHITE BLOOD COUNT 4.7 K/uL (4.1-10.2)
[2017-12-12 10:05] LABS: CHLORIDE 109 MEQ/L (99-109); CREATININE 1.1 MG/DL (0.6-1.3); GFR ESTIMATE (CALCULATED) > 59 mL/min/ (58.99-99999); GLUCOSE 98 mg/dL (70-99); POTASSIUM 4.3 MEQ/L (3.7-5.4); SODIUM 138 MEQ/L (136-147); UREA NITROGEN (BUN) 20 mg/dL (9-23)
[2017-12-12 16:16] VITALS: BP 159/85
[2017-12-12 20:27] VITALS: BP 172/88
[2017-12-12 23:30] VITALS: BP 164/83
[2017-12-13 05:22] VITALS: BP 159/88
[2017-12-13 08:45] VITALS: BP 156/82
[2017-12-13 09:03] LABS: HEMATOCRIT 28.7 % (38.0-50.0); HEMOGLOBIN 9.5 G/DL (12.5-16.6); MCH 29.3 PG (29.0-34.0); MCHC 33.1 G/DL (30.0-36.0); MCV 88.6 FL (86-99); NRBC (%) 0.6 /100 WBC (0-0); PLATELET COUNT 109 K/uL (156-360); RBC DIS.WIDTH-CV 14.2 % (11.8-14.6); RBC DIS.WIDTH-SD 45.4 % (39-53); RED BLOOD COUNT 3.24 M/uL (4.00-5.50); WHITE BLOOD COUNT 4.8 K/uL (4.1-10.2)
[2017-12-13 09:47] LABS: CHLORIDE 105 MEQ/L (99-109); POTASSIUM 4.2 MEQ/L (3.7-5.4); SODIUM 138 MEQ/L (136-147)
[2017-12-13 09:52] LABS: CREATININE 1.2 MG/DL (0.6-1.3); GFR ESTIMATE (CALCULATED) > 59 mL/min/ (58.99-99999); GLUCOSE 101 mg/dL (70-99); UREA NITROGEN (BUN) 22 mg/dL (9-23)
[2017-12-13 12:30] VITALS: BP 125/79
[2017-12-13] MEDS ORDERED: PANTOPRAZOLE SO40 MG PO (14:29)
[2017-12-13] MEDS ORDERED: ZOFRAN4 MG PO (14:29)
[2017-12-13 15:45] VITALS: BP 153/80
== END 2017-12-13 17:29 | disposition home health service (06) | DRG 872 ==
LOC: EME 01:21 → 4EAST 07:57 → EDOF 07:57 → ENRESERV 07:58 → 4EAST 16:45 → ENRESERV 12-11 11:53 → CANRESERV 12-11 12:29 → ENRESERV 12-11 12:29 → 4EAST 12-13 17:29
PROVIDERS: Emergency Medicine; Hospitalist; Internal Medicine
PROC: 30233N1 Transfusion of Nonautologous Red Blood Cells into Peripheral Vein, Percutaneous Approach (ICD-10-PCS; principal; 2017-12-08)
DX: A41.9 Sepsis, unspecified organism (principal); D62 Acute posthemorrhagic anemia; N17.9 Acute kidney failure, unspecified; C25.2 Malignant neoplasm of tail of pancreas; C78.6 Secondary malignant neoplasm of retroperitoneum and peritoneum; I86.4 Gastric varices; I95.9 Hypotension, unspecified; J90 Pleural effusion, not elsewhere classified; I48.0 Paroxysmal atrial fibrillation; E86.0 Dehydration; N13.30 Unspecified hydronephrosis; J98.11 Atelectasis; I89.0 Lymphedema, not elsewhere classified
CPT/HCPCS: 71045; 71046; 71250; 74176; 80048; 80053; 80076; 80202; 81003; 82272; 83605; 83690; 83735; 85014; 85018; 85025; 85027; 86308; 86850; 86900; 86901; 86920; 87040; 87086; 87502; 93005; 94799; 96413; 96417; C9113; J1650; J1940; J2270; J2354; J2405; J2543; J3370; J7030; J7050; J9201; J9264; P9016; Q0164

== ENCOUNTER 2018-02-24 20:25 | Emergency (ER) | payer BC ==
[~2018-02-24] VITALS: Ht 177.8 cm; Wt 64.1 kg
[~2018-02-24 20:25] MED LIST changes: +ENULOSE10 GM/15 M PO; +STOOL SOFTENER100 MG PO; +ZOFRAN4 MG PO
[2018-02-24 21:14] LABS: APPEARANCE CLEAR ((CLEAR)); BILIRUBIN NEGATIVE; BLOOD NEGATIVE; COLOR STRAW ((YELLOW)); GLUCOSE (STRIP) NEGATIVE; KETONES NEGATIVE; LEUKOCYTES NEGATIVE; NITRITE NEGATIVE; PROTEIN (STRIP) NEGATIVE; SPECIFIC GRAVITY 1.013 (1.000-1.030); UCUL ADDED? NO; UROBILINOGEN 0.2 MG/DL (0.2-1.0)
[2018-02-24 21:24] LABS: HEMOGLOBIN 9.8 G/DL (12.5-16.6); MCHC 32.7 G/DL (30.0-36.0); MCV 91.7 FL (86-99); PLATELET COUNT 107 K/uL (156-360); RBC DIS.WIDTH-CV 15.6 % (11.8-14.6); RBC DIS.WIDTH-SD 51.8 % (39-53); RED BLOOD COUNT 3.27 M/uL (4.00-5.50); WHITE BLOOD COUNT 4.9 K/uL (4.1-10.2)
[2018-02-24 21:34] LABS: ALBUMIN 3.5 g/dL (3.2-4.8); CHLORIDE 102 mEq/L (99-109); SODIUM 139 mEq/L (136-147)
[2018-02-24 21:36] LABS: GLUCOSE 107 mg/dL (70-99)
[2018-02-24 21:38] LABS: TOTAL BILIRUBIN 0.6 mg/dL (0.0-1.0)
[2018-02-24 21:40] LABS: ALKALINE PHOSPHATASE 59 IU/L (3-129); CREATININE 1.3 mg/dL (0.6-1.3); GFR ESTIMATE (CALCULATED) > 59 mL/min/ (58.99-99999)
[2018-02-24 21:41] LABS: UREA NITROGEN (BUN) 16 mg/dL (9-23)
[2018-02-24 21:42] LABS: AST (GOT) 16 IU/L (2-34)
[2018-02-24 21:43] LABS: ALT (GPT) 8 IU/L (3-49); LIPASE 10 U/L (1.0-51.0)
[2018-02-24 23:36] VITALS: BP 145/87
== END 2018-02-24 23:37 | disposition home or self-care (01) ==
LOC: EME 20:25
DX: R10.30 Lower abdominal pain, unspecified (principal); G89.29 Other chronic pain; Z92.21 Personal history of antineoplastic chemotherapy; C25.9 Malignant neoplasm of pancreas, unspecified; R03.0 Elevated blood-pressure reading, without diagnosis of hypertension; Z79.891 Long term (current) use of opiate analgesic; Z98.890 Other specified postprocedural states; Z88.8 Allergy status to other drugs, medicaments and biological substances
CPT/HCPCS: 80053; 81003; 83690; 85027; 99281; 99284; J1170

== ENCOUNTER 2018-03-10 17:24 | Emergency (ER) | payer BC ==
[~2018-03-10] VITALS: Ht 177.8 cm; Wt 64.8 kg
[2018-03-10 21:09] VITALS: BP 165/78
[2018-03-24] MEDS ORDERED: RELISTOR150 MG PO (15:35)
[2018-03-24] MEDS ORDERED: DURAGESIC50 MCG TD (15:36)
== END 2018-03-10 21:09 | disposition home or self-care (01) ==
LOC: EME 17:24
DX: R10.9 Unspecified abdominal pain (principal); C25.9 Malignant neoplasm of pancreas, unspecified; Z92.21 Personal history of antineoplastic chemotherapy
CPT/HCPCS: 99281; 99284; J1170

== ENCOUNTER 2018-03-14 00:15 | Emergency (ER) | payer BC ==
[~2018-03-14] VITALS: Ht 177.8 cm; Wt 64.6 kg
[2018-03-14 01:52] LABS: HEMATOCRIT 30.1 % (38.0-50.0); HEMOGLOBIN 9.7 G/DL (12.5-16.6); MCH 29.8 PG (29.0-34.0); MCHC 32.2 G/DL (30.0-36.0); MCV 92.3 FL (86-99); RBC DIS.WIDTH-CV 16.1 % (11.8-14.6); RBC DIS.WIDTH-SD 53.6 % (39-53); RED BLOOD COUNT 3.26 M/uL (4.00-5.50); WHITE BLOOD COUNT 4.7 K/uL (4.1-10.2)
[2018-03-14 01:58] LABS: PLATELET COUNT 127 K/uL (156-360)
[2018-03-14 02:03] LABS: ALBUMIN 3.5 g/dL (3.2-4.8); CHLORIDE 104 mEq/L (99-109); POTASSIUM 4.2 mEq/L (3.7-5.4)
[2018-03-14 02:04] LABS: SODIUM 139 mEq/L (136-147)
[2018-03-14 02:06] LABS: GLUCOSE 112 mg/dL (70-99)
[2018-03-14 02:08] LABS: TOTAL BILIRUBIN 0.4 mg/dL (0.0-1.0)
[2018-03-14 02:09] LABS: ALKALINE PHOSPHATASE 64 IU/L (3-129); CREATININE 1.4 mg/dL (0.6-1.3); GFR ESTIMATE (CALCULATED) 55 mL/min/ (58.99-99999)
[2018-03-14 02:11] LABS: AST (GOT) 12 IU/L (2-34); UREA NITROGEN (BUN) 18 mg/dL (9-23)
[2018-03-14 02:12] LABS: ALT (GPT) 4 IU/L (3-49)
[2018-03-14 02:13] LABS: LIPASE 24 U/L (1.0-51.0)
[2018-03-14 05:58] VITALS: BP 150/85
[2018-03-24] MEDS ORDERED: RELISTOR150 MG PO (15:35)
[2018-03-24] MEDS ORDERED: DURAGESIC50 MCG TD (15:36)
== END 2018-03-14 05:59 | disposition home or self-care (01) ==
LOC: EME 00:15
PROVIDERS: Emergency Medicine
DX: R16.1 Splenomegaly, not elsewhere classified (principal); R18.8 Other ascites; C25.9 Malignant neoplasm of pancreas, unspecified; J90 Pleural effusion, not elsewhere classified; Z92.21 Personal history of antineoplastic chemotherapy; Z88.8 Allergy status to other drugs, medicaments and biological substances
CPT/HCPCS: 74177; 80053; 83690; 85027; 99281; 99284; J3010; J7030

== ENCOUNTER 2018-04-24 01:11 | Inpatient (IN) | payer BC ==
[~2018-04-24] VITALS: Ht 177.8 cm; Wt 68.4 kg
[~2018-04-24 01:11] MED LIST changes: +DURAGESIC50 MCG TD; +RELISTOR150 MG PO
[2018-04-24 02:07] LABS: HEMATOCRIT 29.8 % (38.0-50.0); HEMOGLOBIN 9.8 G/DL (12.5-16.6); MCH 29.3 PG (29.0-34.0); MCHC 32.9 G/DL (30.0-36.0); PLATELET COUNT 154 K/uL (156-360); RBC DIS.WIDTH-CV 14.5 % (11.8-14.6); RBC DIS.WIDTH-SD 46.4 % (39-53); RED BLOOD COUNT 3.35 M/uL (4.00-5.50); WHITE BLOOD COUNT 5.5 K/uL (4.1-10.2)
[2018-04-24 02:20] LABS: CHLORIDE 100 mEq/L (99-109); POTASSIUM 4.3 mEq/L (3.7-5.4); SODIUM 138 mEq/L (136-147)
[2018-04-24 02:22] LABS: GLUCOSE 115 mg/dL (70-99); TOTAL PROTEIN 5.8 g/dL (6.4-8.3)
[2018-04-24 02:23] LABS: INTER. NORMALIZED RATIO 1.2
[2018-04-24 02:24] LABS: TOTAL BILIRUBIN 0.6 mg/dL (0.0-1.0)
[2018-04-24 02:26] LABS: PTT 31.1 SEC (25-37)
[2018-04-24 02:26] LABS: ALKALINE PHOSPHATASE 61 IU/L (3-129); CREATININE 1.1 mg/dL (0.6-1.3); GFR ESTIMATE (CALCULATED) > 59 mL/min/ (58.99-99999)
[2018-04-24 02:27] LABS: AST (GOT) 11 IU/L (2-34); UREA NITROGEN (BUN) 17 mg/dL (9-23)
[2018-04-24 02:28] LABS: DIRECT BILIRUBIN 0.4 mg/dL (0.0-0.3)
[2018-04-24 02:29] LABS: ALT (GPT) 5 IU/L (3-49); LIPASE 6 U/L (1.0-51.0)
[2018-04-24 08:29] LABS: APPEARANCE CLEAR ((CLEAR)); BILIRUBIN NEGATIVE; BLOOD NEGATIVE; COLOR AMBER ((YELLOW)); GLUCOSE (STRIP) NEGATIVE; KETONES NEGATIVE; LEUKOCYTES NEGATIVE; NITRITE NEGATIVE; PROTEIN (STRIP) 30; SPECIFIC GRAVITY 1.027 (1.000-1.030)
[2018-04-24] MEDS ORDERED: PERTZYE DR 24,1 EACH PO (08:35)
[2018-04-24] MEDS ORDERED: NEURONTIN100 MG PO (08:36)
[2018-04-24] MEDS ORDERED: ATIVAN0.5 MG PO (08:38)
[2018-04-24] MEDS ORDERED: NEXIUM20 MG PO (08:39)
[2018-04-24] MEDS ORDERED: PANTOPRAZOLE SO20 MG PO (08:43)
[2018-04-24] MEDS ORDERED: MS CONTIN,ORAMO60 MG PO (08:44)
[2018-04-24] MEDS ORDERED: MS CONTIN,ORAMO30 MG PO (08:47)
[2018-04-24] MEDS ORDERED: MS CONTIN,ORAMO15 M1 PO (08:48)
[2018-04-24] MEDS ORDERED: SENNA PLUS TAB1 EACH PO (08:48)
[2018-04-24 11:00] VITALS: BP 106/60
[2018-04-24 15:00] VITALS: BP 120/74
[2018-04-24 19:44] VITALS: BP 113/73
[2018-04-24 23:20] VITALS: BP 114/75
[2018-04-25 03:53] VITALS: BP 128/83
[2018-04-25 06:41] LABS: HEMATOCRIT 31.3 % (38.0-50.0); HEMOGLOBIN 9.8 G/DL (12.5-16.6); MCH 27.7 PG (29.0-34.0); MCHC 31.3 G/DL (30.0-36.0); MCV 88.4 FL (86-99); PLATELET COUNT 137 K/uL (156-360); RBC DIS.WIDTH-CV 14.3 % (11.8-14.6); RBC DIS.WIDTH-SD 46.2 % (39-53); RED BLOOD COUNT 3.54 M/uL (4.00-5.50); WHITE BLOOD COUNT 4.6 K/uL (4.1-10.2)
[2018-04-25 07:04] LABS: CHLORIDE 100 MEQ/L (99-109); CREATININE 1.1 MG/DL (0.6-1.3); GFR ESTIMATE (CALCULATED) > 59 mL/min/ (58.99-99999); GLUCOSE 114 mg/dL (70-99); POTASSIUM 4.7 MEQ/L (3.7-5.4); SODIUM 137 MEQ/L (136-147); UREA NITROGEN (BUN) 18 mg/dL (9-23)
[2018-04-25 07:24] VITALS: BP 133/80
[2018-04-25 11:24] VITALS: BP 112/75
== END 2018-04-25 13:54 | disposition home or self-care (01) | DRG 436 ==
LOC: EME 01:11 → EDOF 07:46 → 5EAST 07:46 → ENRESERV 07:48 → 5EAST 10:53
PROVIDERS: Emergency Medicine; Internal Medicine
PROC: 0W9G3ZZ Drainage of Peritoneal Cavity, Percutaneous Approach (ICD-10-PCS; principal; 2018-04-24)
DX: C25.9 Malignant neoplasm of pancreas, unspecified (principal); R18.0 Malignant ascites; C78.6 Secondary malignant neoplasm of retroperitoneum and peritoneum; J90 Pleural effusion, not elsewhere classified; D64.9 Anemia, unspecified; Z66 Do not resuscitate; N13.30 Unspecified hydronephrosis; I48.0 Paroxysmal atrial fibrillation; F41.9 Anxiety disorder, unspecified; Z79.899 Other long term (current) drug therapy; Z96.89 Presence of other specified functional implants; Z51.5 Encounter for palliative care; R10.9 Unspecified abdominal pain
CPT/HCPCS: 49083; 71045; 74176; 80048; 80076; 81003; 83690; 85027; 85610; 85730; 87086; 99281; 99285; J1644; J2270; J2405

== ENCOUNTER 2018-04-29 08:27 | Emergency (ER) | payer OTHER, BC ==
[~2018-04-29] VITALS: Ht 177.8 cm; Wt 69.1 kg
[~2018-04-29 08:27] MED LIST changes: +ATIVAN0.5 MG PO; +MS CONTIN,ORAMO15 M1 PO; +MS CONTIN,ORAMO30 MG PO; +MS CONTIN,ORAMO60 MG PO; +NEURONTIN100 MG PO; +NEXIUM20 MG PO; +PANTOPRAZOLE SO20 MG PO; +PERTZYE DR 24,1 EACH PO; +SENNA PLUS TAB1 EACH PO
[2018-04-29 13:38] VITALS: BP 129/86
== END 2018-04-29 13:39 | disposition home or self-care (01) ==
LOC: EME 08:27
PROC: 0W9G3ZZ Drainage of Peritoneal Cavity, Percutaneous Approach (ICD-10-PCS; principal; 2018-04-29)
DX: R18.8 Other ascites (principal); C25.9 Malignant neoplasm of pancreas, unspecified; Z92.21 Personal history of antineoplastic chemotherapy
CPT/HCPCS: 49083; C1729; C1769